=== PATIENT | female | born 1950 | race Caucasian/White ===

== ENCOUNTER → 2024-04-04 08:42 | Outpatient (REF) | payer MEDICARE, OTHER, SELFPAY | LOC: HWRAD 08:42 | PROVIDERS: ATTENDING PHYSICIAN Internal Medicine | DX: R31.29 Other microscopic hematuria (principal) | CPT/HCPCS: 76770 ==

== ENCOUNTER 2025-05-31 16:01 | Inpatient (IN) | payer MEDICARE, OTHER, SELFPAY ==
[2025-05-29] VITALS (15 sets, daily range): BP systolic 117–161; BP diastolic 52–111; PULSE 80; O2SAT 96
--- NOTE | 2025-05-29 09:50 | ED.GENMED ---
History of Present Illness
<Queenie Geller PA-C - Last Filed: 05/29/25 15:43>
General
Chief Complaint: Fall
Source: patient
Exam Limitations: none
Time Seen by Provider: 05/29/25 09:37
History of Present Illness
History of Present Illness:
75yoF with a history of atrial fibrillation on Eliquis, hypertension, and hyperlipidemia presenting via EMS for evaluation after a fall around 6 AM this morning. Patient was attempting to get out of bed when she lost her balance and fell onto her
buttock. She denies any head strike or LOC. Patient was unable to get up after the fall and was on the ground for about an hour before EMS arrived. Her only current complaint is left ankle pain. She denies any headache, neck pain, back pain, hip
pain, shortness of breath. She lives at home with her and daughter. She has a walker at home but does not usually use this.
Phy Exam
<Queenie Geller PA-C - Last Filed: 05/29/25 15:43>
General Physical Exam
General Presentation: well appearing and no apparent distress
General age: appears stated age
General Skin: warm and dry
General Habitus: normal and elderly
General Mental: alert
ENT Exam
ENT Exam: normocephalic and other (No external signs of head trauma. No cervical spine tenderness.)
Eye Exam
Eye Exam: PERRL and conjunctiva normal
Pulmonary Exam
Pulmonary Exam: lungs clear, no respiratory distress, no rales, chest non tender, no crackles, no rhonchi and no wheezing
Gastrointestinal Exam
Gastrointestinal Exam: non tender, soft and non distended
Neurological Exam
Neurological Exam: alert
Mark Coma Scale
Eye Opening: Spontaneous
Verbal Response: Oriented
Motor Response: Obeys Commands
GCS Total Score: 15
Musculoskeletal Exam
Musculoskeletal Exam: other (No deformity noted to L leg. ROM elicits pain in the L ankle and knee. No tenderness to palpation of ankle or hip. 2+ DP pulse and sensation intact. )
Skin Exam
Skin Exam: normal color and warm/dry
Psychiatric Exam
Psychiatric Exam: normal mood/affect
<Jeremy Hernández DO - Last Filed: 05/29/25 12:55>
Mark Coma Scale
GCS Total Score: 15
Course
<Queenie Geller PA-C - Last Filed: 05/29/25 15:43>
Orders/Labs/Results
Orders:
Orders
05/29/25 09:00
CR Ankle - Left Min 3 Views Urgent
Reason For Exam: PAIN
05/29/25 09:45
Acetaminophen [Tylenol] 1,000 mg PO NOW STA
CR Femur - Left Min 2 Vw Urgent
Comment:
Reason For Exam: pain, fall
CR Knee - Left 4 Or More View* Urgent
Comment:
Reason For Exam: pain, fall
05/29/25 10:03
CT Head W/o Iv Contrast Urgent
Comment:
Reason For Exam: fall on blood thinners
05/29/25 11:29
PT Consult [Pt Eval And Treat] Urgent
Activity Level: Out of Bed- Ad Vandana
05/29/25 11:46
Complete Blood Count/With Diff Urgent
Comprehensive Metabolic Panel Urgent
05/29/25 12:22
Case Management Consult ONCE
Case Management Consult: Discharge Planning
05/29/25 13:20
Urinalysis Reflex To Culture Urgent
Date Specimen was Collected: 05/29/25
Time Specimen was Collected: 13:48
05/29/25 Dinner
Regular
05/29/25 15:23
Splint [Braces/Immobilizers] As Directed
Type of Brace/Immobilizer: Splint
Other brace/immobilizer: ankle stirrup velcro
Location for Brace/Immobilizer: left ankle
Out of bed with brace/immobilizer: Yes
05/29/25 15:27
Admit/Transfer Patient As Directed
Co-Sign Provider:
Level of Care: Observation services
Assign to:: Medical/Surgical
Physician / Group: yamil cardona
Diagnosis: Mechan fall L ankle sprain, l knee contusion, hematuria/malodorus urine unc
Code Status As Directed
Resuscitation Status: Full Code
05/29/25 15:30
PRN Pain Medication Management As Directed
May give lesser potent ordered pain med per pt: Yes
preference::
Protocol:: Medication orders for pain may be administered in a
manner that supports deferring to patient preference
when the pt is:
- Requesting an ordered lesser potent pain medication.
Least to most potent pain medications are defined
as: acetaminophen < NSAID < tramadol < opioids
(morphine, oxycodone, hydromorphone).
- Requesting a lesser dose of the same medication IF
ORDERED.
- Requesting a less intrusive route of administration
if both routes are prescribed by the provider (PO <
IV).
Abnormal Lab Results
05/29/25
11:46
MCH 26.0 L pg
(27.0-31.0)
MCHC 31.7 L g/dL
(33.0-37.0)
RDW 19.5 H %
(11.5-14.5)
Abs Immat Gran (auto) 0.1 H 10^3/uL
(0-0.05)
Absolute Neuts (auto) 6.9 H 10^3/uL
(1.4-6.5)
Absolute Monos (auto) 0.7 H 10^3/uL
(0.1-0.6)
Immature Gran % 0.6 H %
(0-0.5)
Neutrophils % 76.6 H %
(42.2-75.2)
Lymphocytes % 13.9 L %
(20.5-51.1)
BUN 19 H mg/dl
(7-17)
Glucose 113 H mg/dl
(70-99)
05/29/25 11:46
05/29/25 11:46
Vital Signs
Initial and Last Documented VS:
Initial Vital Signs
Temp Pulse Resp BP Pulse Ox
98.0 F 74 16 117/52 98
05/29/25 07:54 05/29/25 07:54 05/29/25 07:54 05/29/25 07:54 05/29/25 07:54
Last Documented Vital Signs
Temp Pulse Resp BP Pulse Ox
98.0 F 73 19 117/60 97
05/29/25 07:54 05/29/25 12:12 05/29/25 12:12 05/29/25 12:12 05/29/25 12:12
<Jeremy Hernández, DO - Last Filed: 05/29/25 12:55>
Orders/Labs/Results
Orders:
Orders
05/29/25 09:00
CR Ankle - Left Min 3 Views Urgent
Reason For Exam: PAIN
05/29/25 09:45
Acetaminophen [Tylenol] 1,000 mg PO NOW STA
CR Femur - Left Min 2 Vw Urgent
Comment:
Reason For Exam: pain, fall
CR Knee - Left 4 Or More View* Urgent
Comment:
Reason For Exam: pain, fall
05/29/25 10:03
CT Head W/o Iv Contrast Urgent
Comment:
Reason For Exam: fall on blood thinners
05/29/25 11:29
PT Consult [Pt Eval And Treat] Urgent
Activity Level: Out of Bed- Ad Vandana
05/29/25 11:46
Complete Blood Count/With Diff Urgent
Comprehensive Metabolic Panel Urgent
05/29/25 12:22
Case Management Consult ONCE
Case Management Consult: Discharge Planning
05/29/25 13:20
Urinalysis Reflex To Culture Urgent
Date Specimen was Collected: 05/29/25
Time Specimen was Collected: 13:48
05/29/25 Dinner
Regular
05/29/25 15:23
Splint [Braces/Immobilizers] As Directed
Type of Brace/Immobilizer: Splint
Other brace/immobilizer: ankle stirrup velcro
Location for Brace/Immobilizer: left ankle
Out of bed with brace/immobilizer: Yes
05/29/25 15:27
Admit/Transfer Patient As Directed
Co-Sign Provider:
Level of Care: Observation services
Assign to:: Medical/Surgical
Physician / Group: yamil cardona
Diagnosis: Mechan fall L ankle sprain, l knee contusion, hematuria/malodorus urine unc
Code Status As Directed
Resuscitation Status: Full Code
05/29/25 15:30
PRN Pain Medication Management As Directed
May give lesser potent ordered pain med per pt: Yes
preference::
Protocol:: Medication orders for pain may be administered in a
manner that supports deferring to patient preference
when the pt is:
- Requesting an ordered lesser potent pain medication.
Least to most potent pain medications are defined
as: acetaminophen < NSAID < tramadol < opioids
(morphine, oxycodone, hydromorphone).
- Requesting a lesser dose of the same medication IF
ORDERED.
- Requesting a less intrusive route of administration
if both routes are prescribed by the provider (PO <
IV).
Abnormal Lab Results
05/29/25
11:46
MCH 26.0 L pg
(27.0-31.0)
MCHC 31.7 L g/dL
(33.0-37.0)
RDW 19.5 H %
(11.5-14.5)
Abs Immat Gran (auto) 0.1 H 10^3/uL
(0-0.05)
Absolute Neuts (auto) 6.9 H 10^3/uL
(1.4-6.5)
Absolute Monos (auto) 0.7 H 10^3/uL
(0.1-0.6)
Immature Gran % 0.6 H %
(0-0.5)
Neutrophils % 76.6 H %
(42.2-75.2)
Lymphocytes % 13.9 L %
(20.5-51.1)
BUN 19 H mg/dl
(7-17)
Glucose 113 H mg/dl
(70-99)
05/29/25 11:46
05/29/25 11:46
Vital Signs
Initial and Last Documented VS:
Initial Vital Signs
Temp Pulse Resp BP Pulse Ox
98.0 F 74 16 117/52 98
05/29/25 07:54 05/29/25 07:54 05/29/25 07:54 05/29/25 07:54 05/29/25 07:54
Last Documented Vital Signs
Temp Pulse Resp BP Pulse Ox
98.0 F 73 19 117/60 97
05/29/25 07:54 05/29/25 12:12 05/29/25 12:12 05/29/25 12:12 05/29/25 12:12
<Queenie Geller PA-C - Last Filed: 05/29/25 15:43>
MDM/Problems Addressed
Differential Diagnosis Includes:
75yoF here after a fall this morning. Complained of left head strike although is on Eliquis and ankle pain in triage although was also noted to have left knee tenderness on exam. Denies there is a documented history of vascular dementia. VSS.
Patient is awake and alert with a GCS of 15. Differential diagnosis includes but is not limited to: Fracture, sprain, contusion, intracranial hemorrhage
Initial ED plan: Left ankle x-rays obtained in triage which are negative for fractures. Will also check left knee/femur x-rays and head CT.
<Queenie Geller PA-C - Last Filed: 05/29/25 15:43>
*Pulse Oximetry
SaO2: 98
Oxygen Mode of Delivery: Room air
Patient hypoxic: no
*Critical Care Note
Total Time (30-74mins, 75-104mins- exclusive of procedures): Not Applicable
<Queenie Geller PA-C - Last Filed: 05/29/25 15:43>
Update Note
Update Note:
Remainder of imaging is negative for traumatic injuries. Patient having difficulty ambulating to the bathroom with nursing staff and PT consult obtained. PT recommending SNF. There is only 1 phone number listed in emergency contact list. This
number was called several times by both myself and case management with no answer. Voicemail box is full and unable to leave any messages. While in ED, patient noted to have malodorous urine and hematuria with incontinence. Straight cath
attempted by nursing staff without success. At this point, no safe discharge plan in place so will admit.
ED Attending Note
<Queenie Geller PA-C - Last Filed: 05/29/25 15:43>
-
Portions of this chart may have been created with voice recognition software.� Occasional wrong word or��sound alike� substitutions may have occurred due to the inherent limitations of voice recognition software.
<Jeremy Hernández DO - Last Filed: 05/29/25 12:55>
ED Attending Note
Patient seen and examined by attending physician: Yes
I performed the substantive portion of visit, reviewed & personally made and approve the management plan that is documented in note by myself or GUILHERME.: Yes
ED Attending Note:
I have seen and evaluated the patient with a qfhu-[id number]-ilcy encounter. I have spoken to the advance practicer provider and involved in the medical history, the physical exam, medical decision making.
Evaluation and management service: agree unless noted differently below.
Results interpretation: agree unless noted differently below.
Focused HPI: 75-year-old female presenting after a fall. Patient fell getting out of bed and complains of ankle pain. She is on a blood thinner. Is not certain whether or not she hit her head
Physical exam: Generalized weak and fatigued. No traumatic injury seen in any extremity
Medical Decision Making: Trauma workup negative. Patient evaluated by PT and patient does need assistance. Attempts have been made to contact her family. Patient may require placement
Discharge Plan
Departure
Patient Disposition: Admit
Date of Disposition: 05/29/25
Time of Disposition: 14:56
Presentation/result/management discussed w/ accepting MD/DO: Hospitalist
Discharge Problem:
Ambulatory dysfunction, Ground-level fall, Left leg pain
Prescriptions:
No Action
atorvastatin 40 mg Tablet
40 mg PO DAILY
metoprolol succinate 25 mg Tablet Extended Release 24 Hr
25 mg PO DAILY
Eliquis 5 mg Tablet
5 mg PO BID
Referrals:
Morris Roque MD [Family Provider, Internal Medicine]
Interventions
Interventions:
*General Assessment Last Done: 05/29/25 07:54
*Neglect/Abuse Screening Last Done: 05/29/25 07:54
*ED COVID-19 Vaccine History Last Done: 05/29/25 07:54
*ED Influenza Vaccine History Last Done: 05/29/25 07:54
[facility] Risk Assessment Tool Last Done: 05/29/25 07:54
*Risk Screen - Suicide (C-SSRS) Last Done: 05/29/25 07:54
ED-Musculoskeletal Assessment Last Done: 05/29/25 10:08
ED- Neurological Assessment Last Done: 05/29/25 11:50
ED-Skin Assessment Last Done: 05/29/25 10:08
Discharge Date and Time
Print Language: CANADIAN
[2025-05-29] MEDS: TYLENOL 1000 MG PO (09:55)
[2025-05-29 11:57] LABS: Hematocrit 37.8 % (37.0-47.0); Hemoglobin 12.0 g/dL (12.0-16.0); Mean Corp Hgb Conc. 31.7 g/dL (33.0-37.0); Mean Corpuscular Volume 81.8 fL (81.0-99.0); Nucleated Red Blood Cells % 0 %; Platelet Count 141 10^3/uL (130-400); Red Cell Dist. Width 19.5 % (11.5-14.5)
[2025-05-29 12:07] LABS: AST (SGOT) 23 U/L (14-36); Blood Urea Nitrogen 19 mg/dl (7-17); Carbon Dioxide 26 mmol/L (22-30); Glucose 113 mg/dl (70-99); eGFR > 60.00
[2025-05-29 12:19] LABS: ALT (SGPT) 21 U/L (0-35); Albumin 4.4 g/dl (3.5-5.0); Alkaline Phosphatase 69 U/L (38-126); Calcium 9.3 mg/dl (8.4-10.2); Chloride 105 mmol/L (98-107); Potassium 3.7 mmol/L (3.5-5.1); Sodium 137 mmol/L (135-145); Total Protein 7.3 g/dl (6.3-8.2)
--- NOTE | 2025-05-29 13:25 | EDCM ---
Addendum entered by Elke Nobles 05/29/25 14:32:
Tried again to reach family, still no answer. Denia CATALAN updated via TT.
Addendum entered by Elke Nobles 05/29/25 14:08:
Tried again to reach family, still no answer.
Original Note:
Received consult, reviewed chart and met with pt bedside in ED. Pt lives with her and daughter in [address].
Independent in ADLs, personal care and ambulation at baseline, has walker but does not normally use it.
Seen by PT who recommend SNF or home with 24 hour care.
Pt does not want to go to SNF. Is agreeable to home with VN. No hx VN or SNF.
Pt states and daughter are home all the time, daughter had a stroke several years ago but is still driving.
drives but 'not as much as he used to '.
Discussed with Denia CATALAN, she was not able to reach family, no answer and voicemail is full.
I also attempted to call but still no answer. Pt does not know her daughter's cell phone number.
Will continue to try and reach family.
--- NOTE | 2025-05-29 15:11 | HPS.HSE ---
Family Physician
<MARTINE Reynolds - Last Filed: 05/29/25 15:27>
-
Family Physician: Morris Roque
Chief Complaint
<MARTINE Reynolds - Last Filed: 05/29/25 15:27>
History of Present Illness
75-year-old female she lives with her and daughter who was reportedly attempting to get out of bed at 6 AM this morning when she lost her balance falling onto her buttocks. She was on the floor for approximate 1 hour before she was able to
get a hold of EMS. She was complaining of left knee and ankle pain in the ER. She also complained of urine incontinence with hematuria with the ER staff having difficulty obtaining urine being straight cath after multiple attempts. Imaging
studies were negative for any fractures. The patient has past medical history of history of chronic ambulatory dysfunction uses walker at home, A-fib on Eliquis, HTN, HLD
<Baron Roca MD - Last Filed: 05/29/25 16:25>
-
fall
Medical History
<MARTINE Reynolds - Last Filed: 05/29/25 15:27>
Past Medical History
Past Medical History: Reports Other
Additional Past Medical History:
chronic ambulatory dysfunction uses walker at home
A-fib on Eliquis
HTN
HLD
Vascular dementia
Past Surgical History: Reports Other
Additional Past Surgical History:
Tonsillectomy
Social History
Tobacco: Non-smoker
Alcohol: Occasional (Twice a month)
Drug: None
Personal:
Living: With Family ( and daughter)
Family History
Family History: Unable to Obtain
Allergies / Home Medications
Allergies reflects when Allergies were last updated in [facility].
Home Medications with original date entered in [facility]
Allergy/Medication List:
Allergies
Allergy/AdvReac Type Severity Reaction Status Date / Time
No Known Allergies Allergy Verified 05/29/25 07:58
Home Medications
apixaban 5 mg tablet (Eliquis) 5 mg PO BID 05/29/25
atorvastatin 40 mg tablet 40 mg PO DAILY 05/29/25
metoprolol succinate 25 mg tablet,extended release 24 hr 25 mg PO DAILY 05/29/25
Review of Systems
<MARTINE Reynolds - Last Filed: 05/29/25 15:27>
-
History Source: Patient
A 12 point ROS was completed and negative except as noted: Yes
Constitutional: Denies Fever or Chills
EENT: Denies Sore Throat or Runny Nose
Respiratory: Denies Cough or Trouble Breathing
Cardiac: Denies Chest Pain, Diaphoresis, Palpitations or Syncope
Abdomen/GI: Denies Abdominal Pain, Nausea, Vomiting, Diarrhea, Constipated, Bloody Stools or Black Stools
: Reports Bleeding (Edmondson tinged malodorous urine on arrival incontinent large amount in bed); Denies Dysuria, Frequency, Flank Pain or Urgency
Musculoskeletal: Reports Joint Pain (Left lateral malleolus swelling and tenderness due to fall) and Other (Contusion left knee no effusion or bony tenderness appreciated)
Skin: Denies Itching or Rash
Neurological: Denies Dizzy or Headache
Endocrine: Reports No Symptoms
Psych: Reports Calm
Physical Exam
<MARTINE Reynolds - Last Filed: 05/29/25 15:27>
Vital Signs
Vital Signs
Temp Pulse Resp BP Pulse Ox
98.0 F 73 19 117/60 97
05/29/25 07:54 05/29/25 12:12 05/29/25 12:12 05/29/25 12:12 05/29/25 12:12
Physical Exam
General: Conversant; No Pain, Fever or Chills
HEENT: NormoCephalic, Anicteric, Moist mucous membranes, PERRLA, [place] Conjunctivae and No Ptosis
Respiratory: Clear; No Wheezes or Rales
Cardiac: S1/S2 and Regular Rhythm; No Murmur, Rub, Gallop or Peripheral Edema
GI: Soft, Non Tender, Non Distended, Normal Bowel Sounds and No Hepatosplenomegaly
Rectal: Deferred by Provider
Genito-urinary: Bloody Urine (Edmondson tinged malodorous urine incontinent large amount in the ER)
Musculoskeletal: No Clubbing, No Cyanosis, Edema, Left Lower Extremity (Tenderness with swelling lateral malleolus due to fall, +2 dorsal pedal pulse intact sensation intact) and Other (Contusion left knee no effusion or bony tenderness); No Edema,
Left Upper Extremity, Edema, Right Upper Extremity or Edema, Right Lower Extremity
Skin: Warm and Dry; No Rash
Neuro: AO x 3 (Person, place, year, president but not all of history), Cranial Nerves Intact and No Sensory Deficits; No Slurred Speech, Facial Droop, Tremors or Sedated
Psych: Calm
Laboratory Results
<MARTINE Reynolds - Last Filed: 05/29/25 15:27>
-
05/29/25 11:46
05/29/25 11:46
Laboratory Results
Total Bilirubin 1.3 mg/dl (0.2-1.3) 05/29/25 11:46
AST 23 U/L (14-36) 05/29/25 11:46
ALT 21 U/L (0-35) 05/29/25 11:46
Alkaline Phosphatase 69 U/L (38-126) 05/29/25 11:46
Data Reviewed
<MARTINE Reynolds - Last Filed: 05/29/25 15:27>
-
Diagnostic Radiology: Report Reviewed by me
Lab Data: Labs Reviewed by me
Impression/Plan
<MARTINE Reynolds - Last Filed: 05/29/25 15:27>
-
Impression/plan:
Observation MedSurg
#Mechanical fall with acute on chronic ambulatory dysfunction/Left knee/ankle strain
- Baseline uses walker to walk
- Had PT eval recommending SNF
- Consult case management for SNF
- Tylenol as needed
- Velcro ankle stirrup splint
#Incontinence with malodorous urine/hematuria on exam concern for UTI
- Straight cath attempted multiple times in the ER which is coiling to vaginal vault per nurse
Will attempt urinalysis via bedpan
- Follow UA and culture
#Dementia�vascular
Patient currently oriented to name, place, year, president but not all of history
CT head: No acute intracranial normality. Mild age-related parenchymal atrophy, patchy low-attenuation bilateral cerebral white matter with greatest involvement bilateral frontal lobes left greater than right chronic ischemia
Left knee, ankle, femur: no acute fracture or dislocation
#A-fib
- Eliquis 5 mg twice daily
#HTN
BP 117/60
Continue metoprolol succinate 25 mg daily with hold parameter
#HLD
Continue Lipitor 40 mg daily
DVT prophylaxis
Continue Eliquis 5 mg twice daily
Full code states cheri Francis is emergency contact
--- NOTE | 2025-05-29 16:26 | W.PN.UPDATE ---
Update Note
Progress Note Update
I saw and examined the patient.
The BAG SEALER or PA's note was reviewed and I agree with the note.
Comment: 75-year-old female with history of atrial fibrillation, vascular dementia, hypertension, hyperlipidemia came to the hospital after a fall. No fracture on imaging. Evaluated by physical therapy recommended SNF. Check bladder scan. UA.
Obs. CM
General: Conversant; No Pain, Fever or Chills
HEENT: NormoCephalic, Anicteric
Respiratory: Clear; No Wheezes or Rales
Cardiac: S1/S2 and Regular Rhythm; No Murmur, Rub, Gallop or Peripheral Edema
GI: Soft, Non Tender, Non Distended, Normal Bowel Sounds
Genito-urinary: no mcguire
Musculoskeletal: Edema, Left Lower Extremity (Tenderness with swelling lateral malleolus due to fall) and Other (Contusion left knee no effusion or bony tenderness); No Edema, Left Upper Extremity, Edema, Right Upper Extremity or Edema, Right Lower
Extremity
Neuro: AO x 2-3
Psych: Calm
[2025-05-29] MEDS: ELIQUIS 5 MG PO (22:54)
[2025-05-30] VITALS (17 sets, daily range): BP systolic 136–157; BP diastolic 76–128; BMI 18.9
[2025-05-30 02:55] LABS: Urine Character Cloudy (Clear)
[2025-05-30] MEDS: TYLENOL 650 MG PO (03:58)
[2025-05-30 04:46] LABS: Blood Urea Nitrogen 17 mg/dl (7-17); Calcium 8.5 mg/dl (8.4-10.2); Carbon Dioxide 22 mmol/L (22-30); Chloride 106 mmol/L (98-107); Estimated Creatinine Clearance 82 ml/min; Glucose 87 mg/dl (70-99); Potassium 3.7 mmol/L (3.5-5.1); Sodium 136 mmol/L (135-145); eGFR > 60.00
[2025-05-30 05:34] LABS: Hematocrit 32.4 % (37.0-47.0); Hemoglobin 10.4 g/dL (12.0-16.0); Mean Corp Hgb Conc. 32.1 g/dL (33.0-37.0); Mean Corpuscular Volume 82.4 fL (81.0-99.0); Nucleated Red Blood Cells % 0 %; Platelet Count 121 10^3/uL (130-400); Red Cell Dist. Width 19.2 % (11.5-14.5)
[2025-05-30 06:15] LABS: Urine Red Blood Cell 0-2 /HPF (0-2)
[2025-05-30] MEDS: LIPITOR 40 MG PO (09:03)
[2025-05-30] MEDS: ELIQUIS 5 MG PO ×2 (09:03→20:47)
[2025-05-30] MEDS: TOPROL XL 25 MG PO (09:03)
[2025-05-30] MEDS: ROCEPHIN 1000 MG IV (09:04)
[2025-05-30] MEDS: STERILE WATER FOR INJECTION 10 ML IV (09:04)
[2025-05-30] MEDS: NSS 1000 IV (09:26)
--- NOTE | 2025-05-30 09:29 | EDCM ---
Addendum entered by Elke Nobles 05/30/25 10:46:
I met with pt, she told me her sister from [place] called but she does not know her number. Her name is Jovany Zaldivar.
Her daughter's name is Trudy Argueta, she lives with pt and her . I googled Trudy and found a cell phone number [phone]. I called and spoke to Trudy, updated her on her mother's condition. TT to Dr Roca, pt is not ready for discharge
today. I updated Trudy, pt and LINDA Penaloza.
Original Note:
Received consult, again attempted to reach family, no answer and unable to leave voicemail as memory is full.
--- NOTE | 2025-05-30 12:14 | W.PN.HOSP.TC ---
Today's Communication/Plan
-
Monitor vital signs and see plan
Follow urine culture
Start fluids
Metoprolol also added as needed for rapid heart rate if needed
Continue with standing metoprolol
Called spouse, could not leave voicemail since its full
Assessment / Plan
Assessment / Plan
General: Conversant; No Pain, Fever or Chills
HEENT: NormoCephalic, Anicteric
Respiratory: Clear; No Wheezes or Rales
Cardiac: S1/S2 and Regular Rhythm; No Murmur, Rub, Gallop or Peripheral Edema
GI: Soft, Non Tender, Non Distended, Normal Bowel Sounds
Genito-urinary: no mcguire
Musculoskeletal: Edema, Left Lower Extremity (Tenderness with swelling lateral malleolus due to fall) and Other (Contusion left knee no effusion or bony tenderness); No Edema, Left Upper Extremity, Edema, Right Upper Extremity or Edema, Right Lower
Extremity
Neuro: AO x 2-3
Psych: Calm
Mechanical fall with acute on chronic ambulatory dysfunction/Left knee/ankle strain
- Baseline uses walker to walk
- Had PT eval recommending SNF, patient wants to go home
geochemical manager following
- Tylenol as needed
- Velcro ankle stirrup splint
#Incontinence with malodorous urine/hematuria on exam
Ua appears benign; follow urine cx
no abdominal pain
start IVF; appears dehydrated
#Dementia�vascular
Patient currently oriented to name, place, year, president but not all of history
CT head: No acute intracranial normality. Mild age-related parenchymal atrophy, patchy low-attenuation bilateral cerebral white matter with greatest involvement bilateral frontal lobes left greater than right chronic ischemia
Left knee, ankle, femur: no acute fracture or dislocation
#A-fib; unknown chronicity
- Eliquis 5 mg twice daily
cw metoprolol
#HTN
Continue metoprolol succinate 25 mg daily with hold parameter
#HLD
Continue Lipitor 40 mg daily
DVT prophylaxis
Continue Eliquis 5 mg twice daily
Full code
Anticipated Discharge: Within 24 hours
Subjective/Interval History
-
Date of Service: May 30, 2025
Denies pain
Objective Data
-
Labs:
Laboratory Results
05/30/25
03:57
WBC 6.3
Hgb 10.4 L
Hct 32.4 L
Plt Count 121 L
Sodium 136
Potassium 3.7
Chloride 106
Carbon Dioxide 22
BUN 17
Creatinine 0.6
Glucose 87
Calcium 8.5
Vital Signs:
Vital Signs
Temp Pulse Resp BP Pulse Ox
98.7 F 101 23 148/90 80
05/29/25 19:37 05/30/25 11:15 05/30/25 11:15 05/30/25 11:00 05/30/25 11:15
[2025-05-31] MEDS: NSS 1000 IV (00:59)
[2025-05-31 05:20] VITALS: BP 148/80
--- NOTE | 2025-05-31 05:39 | PTCARENOTE ---
Pt received from LD via at 0520. Pt pleasant, AAOx3, VSS, and able to stand and pivot into bed with 1-2 assistance. Pt receptive to room and call johnson. Pt bed in lowest position and call johnson within reach. Pt educated on importance of call johnson
usage, pt relays limited understanding and cooperation. Bed alarm placed and plugged in. Will continue with current plan of care.
[2025-05-31 07:20] VITALS: BP 142/87
[2025-05-31 08:51] LABS: Hematocrit 32.7 % (37.0-47.0); Hemoglobin 10.7 g/dL (12.0-16.0); Mean Corp Hgb Conc. 32.7 g/dL (33.0-37.0); Mean Corpuscular Volume 83.6 fL (81.0-99.0); Nucleated Red Blood Cells % 0 %; Platelet Count 108 10^3/uL (130-400); Red Cell Dist. Width 18.8 % (11.5-14.5)
[2025-05-31] MEDS: ROCEPHIN 1000 MG IV (09:14)
[2025-05-31] MEDS: STERILE WATER FOR INJECTION 10 ML IV (09:14)
[2025-05-31 09:15] LABS: Blood Urea Nitrogen 11 mg/dl (7-17); Calcium 8.2 mg/dl (8.4-10.2); Carbon Dioxide 24 mmol/L (22-30); Chloride 104 mmol/L (98-107); Estimated Creatinine Clearance 82 ml/min; Glucose 84 mg/dl (70-99); Potassium 3.4 mmol/L (3.5-5.1); Sodium 134 mmol/L (135-145); eGFR > 60.00
[2025-05-31] MEDS: ELIQUIS 5 MG PO ×2 (09:15→20:43)
[2025-05-31] MEDS: TOPROL XL 25 MG PO (09:15)
[2025-05-31] MEDS: LIPITOR 40 MG PO (09:15)
[2025-05-31] MEDS: KCL 20 MEQ PO (09:48)
--- NOTE | 2025-05-31 13:18 | W.PN.HOSP.TC ---
Today's Communication/Plan
-
Monitor vital signs see plan
Follow urine culture
Start ceftriaxone
Discussed with daughter
Assessment / Plan
Assessment / Plan
General: Conversant; No Pain, Fever or Chills
HEENT: NormoCephalic, Anicteric
Respiratory: Clear; No Wheezes or Rales
Cardiac: S1/S2 and Regular Rhythm; No Murmur, Rub
GI: Soft, Non Tender, Non Distended, Normal Bowel Sounds
Genito-urinary: no mcguire
Musculoskeletal: Edema, Left Lower Extremity (Tenderness with swelling lateral malleolus due to fall) and Other (Contusion left knee no effusion or bony tenderness); No Edema, Left Upper Extremity, Edema, Right Upper Extremity or Edema, Right Lower
Extremity
Neuro: AO x 2-3
Psych: Calm
Mechanical fall with acute on chronic ambulatory dysfunction/Left knee/ankle strain
- Baseline uses walker to walk
- Had PT eval recommending SNF, patient wants to go home. Patient has very poor insight of her medical problems given vascular dementia. Discussed with daughter and they prefer SNF.
protection manager following
- Tylenol as needed
- Velcro ankle stirrup splint
#Incontinence with malodorous urine/hematuria on exam
Urine culture with Proteus, cw ceftriaxone
#Dementia�vascular
Patient currently oriented to name, place, year, president but not all of history
CT head: No acute intracranial normality. Mild age-related parenchymal atrophy, patchy low-attenuation bilateral cerebral white matter with greatest involvement bilateral frontal lobes left greater than right chronic ischemia
Left knee, ankle, femur: no acute fracture or dislocation
#A-fib; unknown chronicity
- Eliquis 5 mg twice daily
cw metoprolol
#HTN
Continue metoprolol succinate 25 mg daily with hold parameter
#HLD
Continue Lipitor 40 mg daily
DVT prophylaxis
Continue Eliquis 5 mg twice daily
Full code
Daughter's contact: [phone]
Anticipated Discharge: 24 - 48 hours
Subjective/Interval History
-
Date of Service: May 31, 2025
denies nausea
Objective Data
-
Labs:
Laboratory Results
05/31/25
07:17
WBC 5.6
Hgb 10.7 L
Hct 32.7 L
Plt Count 108 L
Sodium 134 L
Potassium 3.4 L
Chloride 104
Carbon Dioxide 24
BUN 11
Creatinine 0.6
Glucose 84
Calcium 8.2 L
Vital Signs:
Vital Signs
Temp Pulse Resp BP Pulse Ox
98.2 F 102 16 143/81 94
05/31/25 07:20 05/31/25 09:15 05/31/25 07:20 05/31/25 09:15 05/31/25 07:20
I&O
05/30/25 05/31/25 06/01/25
06:59 06:59 06:59
Intake Total 120 / 120
Balance 120 / 120
[2025-05-31 15:15] VITALS: BP 143/91
--- NOTE | 2025-05-31 17:51 | CM ---
Chart reviewed. PT is recommending SNF for patient. Spoke with patient's daughter, Elba by telephone. Daughter is requesting referral to [facility]. [facility]. Referrals
placed in [facility].
Plan: SNF
--- NOTE | 2025-05-31 18:34 | PTCARENOTE ---
Assumed care of pt from previous nurse. Pt denies pain. Pt with left ankle brace intact. Pt call johnson is within reach, pt rings syeda., bed alarm in place. will cont to monitor.
[2025-05-31 23:47] VITALS: BP 144/88
[2025-06-01 07:26] LABS: Hematocrit 33.6 % (37.0-47.0); Hemoglobin 11.2 g/dL (12.0-16.0); Mean Corp Hgb Conc. 33.3 g/dL (33.0-37.0); Mean Corpuscular Volume 82.0 fL (81.0-99.0); Nucleated Red Blood Cells % 0 %; Platelet Count 121 10^3/uL (130-400); Red Cell Dist. Width 18.6 % (11.5-14.5)
[2025-06-01 07:27] LABS: Blood Urea Nitrogen 11 mg/dl (7-17); Calcium 8.4 mg/dl (8.4-10.2); Carbon Dioxide 23 mmol/L (22-30); Chloride 104 mmol/L (98-107); Estimated Creatinine Clearance 82 ml/min; Glucose 88 mg/dl (70-99); Potassium 3.9 mmol/L (3.5-5.1); Sodium 136 mmol/L (135-145); eGFR > 60.00
[2025-06-01 07:40] VITALS: BP 139/93
[2025-06-01] MEDS: TYLENOL 650 MG PO (09:01)
[2025-06-01] MEDS: ELIQUIS 5 MG PO ×2 (09:01→19:50)
[2025-06-01] MEDS: TOPROL XL 25 MG PO (09:01)
[2025-06-01] MEDS: LIPITOR 40 MG PO (09:01)
[2025-06-01] MEDS: ROCEPHIN 1000 MG IV (09:02)
--- NOTE | 2025-06-01 15:40 | W.PN.HOSP.TC ---
Today's Communication/Plan
-
Monitor vital signs see plan
Has UTI
Needs SNF
Assessment / Plan
Assessment / Plan
General: Conversant; No Pain, Fever or Chills
HEENT: NormoCephalic, Anicteric
Respiratory: Clear; No Wheezes or Rales
Cardiac: S1/S2 and Regular Rhythm; No Murmur, Rub
GI: Soft, Non Tender, Non Distended, Normal Bowel Sounds
Genito-urinary: no mcguire
Musculoskeletal: Edema, Left Lower Extremity (Tenderness with swelling lateral malleolus due to fall) and Other (Contusion left knee no effusion or bony tenderness); No Edema, Left Upper Extremity, Edema, Right Upper Extremity or Edema, Right Lower
Extremity
Neuro: AO x 2-3
Psych: Calm
Mechanical fall with acute on chronic ambulatory dysfunction/Left knee/ankle strain
- Baseline uses walker to walk
- Had PT eval recommending SNF, patient wants to go home. Patient has very poor insight of her medical problems given vascular dementia. Discussed with daughter and they prefer SNF.
candy department manager following
- Tylenol as needed
- Velcro ankle stirrup splint
#Incontinence with malodorous urine/hematuria on exam
Urine culture with Proteus, cw ceftriaxone; dc further. finished treatment
#Dementia�vascular
Patient currently oriented to name, place, year, president but not all of history
CT head: No acute intracranial normality. Mild age-related parenchymal atrophy, patchy low-attenuation bilateral cerebral white matter with greatest involvement bilateral frontal lobes left greater than right chronic ischemia
Left knee, ankle, femur: no acute fracture or dislocation
#A-fib; unknown chronicity
- Eliquis 5 mg twice daily
cw metoprolol
#HTN
Continue metoprolol succinate 25 mg daily with hold parameter
#HLD
Continue Lipitor 40 mg daily
DVT prophylaxis
Continue Eliquis 5 mg twice daily
Full code
Daughter's contact: [phone]
Anticipated Discharge: Within 24 hours
Subjective/Interval History
-
Date of Service: June 01, 2025
denies pain
Objective Data
-
Labs:
Laboratory Results
06/01/25
05:59
WBC 4.8
Hgb 11.2 L
Hct 33.6 L
Plt Count 121 L
Sodium 136
Potassium 3.9
Chloride 104
Carbon Dioxide 23
BUN 11
Creatinine 0.6
Glucose 88
Calcium 8.4
Vital Signs:
Vital Signs
Temp Pulse Resp BP Pulse Ox
97.4 F 88 16 139/93 97
06/01/25 07:40 06/01/25 07:40 06/01/25 07:40 06/01/25 09:01 06/01/25 08:00
I&O
05/31/25 06/01/25 06/02/25
06:59 06:59 06:59
Intake Total 120 / 120 780 / 780
Balance 120 / 120 780 / 780
[2025-06-01 15:57] VITALS: BP 122/82
[2025-06-01 23:20] VITALS: BP 114/73
[2025-06-02 07:22] LABS: Hematocrit 35.8 % (37.0-47.0); Hemoglobin 11.6 g/dL (12.0-16.0); Mean Corp Hgb Conc. 32.4 g/dL (33.0-37.0); Mean Corpuscular Volume 80.4 fL (81.0-99.0); Nucleated Red Blood Cells % 0 %; Platelet Count 144 10^3/uL (130-400); Red Cell Dist. Width 18.2 % (11.5-14.5)
[2025-06-02 07:55] VITALS: BP 117/83
[2025-06-02 08:13] LABS: Blood Urea Nitrogen 15 mg/dl (7-17); Calcium 8.5 mg/dl (8.4-10.2); Carbon Dioxide 23 mmol/L (22-30); Chloride 104 mmol/L (98-107); Estimated Creatinine Clearance 82 ml/min; Glucose 92 mg/dl (70-99); Potassium 3.9 mmol/L (3.5-5.1); Sodium 135 mmol/L (135-145); eGFR > 60.00
[2025-06-02] MEDS: STERILE WATER FOR INJECTION 10 ML IV (08:30)
[2025-06-02] MEDS: ROCEPHIN 1000 MG IV (08:30)
[2025-06-02] MEDS: TOPROL XL 25 MG PO (08:30)
[2025-06-02] MEDS: LIPITOR 40 MG PO (08:30)
[2025-06-02] MEDS: ELIQUIS 5 MG PO ×2 (08:30→19:50)
--- NOTE | 2025-06-02 10:55 | CM ---
Chart reviewed and embedded case manager spoke with patient's physician referrals have been sent, embedded case manager will need to follow up with [facility], [facility] and [facility] tomorrow.
Plan; Skilled placement tomorrow.
--- NOTE | 2025-06-02 12:40 | W.PN.HOSP.TC ---
Today's Communication/Plan
-
Monitor vital signs see plan
Pending placement, ed case manager aware
finished abx
Assessment / Plan
Assessment / Plan
General: Conversant; No Pain, Fever or Chills
HEENT: NormoCephalic, Anicteric
Respiratory: Clear; No Wheezes or Rales
Cardiac: S1/S2 and Regular Rhythm; No Murmur, Rub
GI: Soft, Non Tender, Non Distended, Normal Bowel Sounds
Genito-urinary: no mcguire
Musculoskeletal: Edema, Left Lower Extremity (Tenderness with swelling lateral malleolus due to fall); No Edema, Left Upper Extremity, Edema, Right Upper Extremity or Edema, Right Lower Extremity
Neuro: AO x 2-3
Psych: Calm
Mechanical fall with acute on chronic ambulatory dysfunction/Left knee/ankle strain
- Baseline uses walker to walk
- Had PT eval recommending SNF. Patient has very poor insight of her medical problems given vascular dementia. Discussed with daughter and they prefer SNF.
business integration manager following
- Tylenol as needed
- Velcro ankle stirrup splint. Podiatry follow-up outpatient
#Incontinence with malodorous urine/hematuria on exam
Urine culture with Proteus, finished treatment with ceftriaxone
#Dementia�vascular
Patient currently oriented to name, place, year, president but not all of history
CT head: No acute intracranial normality. Mild age-related parenchymal atrophy, patchy low-attenuation bilateral cerebral white matter with greatest involvement bilateral frontal lobes left greater than right chronic ischemia
Left knee, ankle, femur: no acute fracture or dislocation
#A-fib; unknown chronicity
- Eliquis 5 mg twice daily
cw metoprolol
#HTN
Continue metoprolol succinate 25 mg daily with hold parameter
#HLD
Continue Lipitor 40 mg daily
DVT prophylaxis
Continue Eliquis 5 mg twice daily
Full code
Daughter's contact: [phone]
Anticipated Discharge: Within 24 hours
Subjective/Interval History
-
Date of Service: June 02, 2025
denies pain
Objective Data
-
Labs:
Laboratory Results
06/02/25
07:10
WBC 4.4 L
Hgb 11.6 L
Hct 35.8 L
Plt Count 144
Sodium 135
Potassium 3.9
Chloride 104
Carbon Dioxide 23
BUN 15
Creatinine 0.6
Glucose 92
Calcium 8.5
Vital Signs:
Vital Signs
Temp Pulse Resp BP Pulse Ox
97.6 F 86 16 117/83 95
06/02/25 07:55 06/02/25 08:30 06/02/25 07:55 06/02/25 08:30 06/02/25 11:05
I&O
06/01/25 06/02/25 06/03/25
06:59 06:59 06:59
Intake Total 780 / 780 1280 / 1280
Balance 780 / 780 1280 / 1280
[2025-06-02 15:25] VITALS: BP 123/67; PULSE 93; O2SAT 95
[2025-06-02 15:43] VITALS: BP 101/67
[2025-06-02 23:11] VITALS: BP 136/83
[2025-06-03 07:00] VITALS: BP 168/93
[2025-06-03] MEDS: TOPROL XL 25 MG PO (08:18)
[2025-06-03] MEDS: LIPITOR 40 MG PO (08:18)
[2025-06-03] MEDS: ELIQUIS 5 MG PO (08:18)
[2025-06-03 08:54] LABS: Hematocrit 36.9 % (37.0-47.0); Hemoglobin 11.8 g/dL (12.0-16.0); Mean Corp Hgb Conc. 32.0 g/dL (33.0-37.0); Mean Corpuscular Volume 81.3 fL (81.0-99.0); Nucleated Red Blood Cells % 0 %; Platelet Count 147 10^3/uL (130-400); Red Cell Dist. Width 18.2 % (11.5-14.5)
--- NOTE | 2025-06-03 08:58 | W.PN.HOSP.TC ---
Today's Communication/Plan
-
Medically cleared for discharge to SNF once bed available.
Assessment / Plan
Assessment / Plan
Impression:
Patient with history of dementia, admitted after fall with ambulatory dysfunction, physical therapy recommending SNF
Assessment/plan:
Mechanical fall with acute on chronic ambulatory dysfunction; Left knee/ankle strain
Baseline: ambulates with walker
PT evaluation recommends SNF; patient has poor insight into medical issues due to vascular dementia
Hospitalist team discussed with daughter; family prefers SNF
retail district manager following
Tylenol as needed
Velcro ankle stirrup splint; outpatient podiatry follow-up
Incontinence with malodorous urine and hematuria on exam-hematuria
Urine culture grew Proteus; completed ceftriaxone treatment
Hemoglobin stable
Vascular dementia
Patient oriented to name, place, year, president; incomplete historical recall
CT head: No acute intracranial abnormality; mild age-related parenchymal atrophy; patchy low-attenuation bilateral cerebral white matter (greatest in bilateral frontal lobes, L > R) consistent with chronic ischemia
Imaging of left knee, ankle, femur: No acute fracture or dislocation
Atrial fibrillation (unknown chronicity)
Continue Eliquis 5 mg BID
Continue metoprolol
Normocytic anemia.
Hematuria, hemoglobin stable.
Hypertension
Continue metoprolol succinate 25 mg daily with hold parameters
Hyperlipidemia
Continue atorvastatin (Lipitor) 40 mg daily
DVT prophylaxis
Continue Eliquis 5 mg BID
Code status
Full code
Diet: Regular diet
Physical therapy recommendations:SNF
Disposition: Medically cleared for discharge to SNF once bed available.
Total time spent on today's encounter was 55 minutes which included time spent in counseling the patient/family regarding diagnosis and treatment plan as listed above, goals of care, and symptom management. Case was discussed with nursing staff,
specialists, and care coordinators/case management. All labs and imaging personally reviewed by me. Remainder the time spent in detailed review of previous records, lab data, imaging, and other medical provider documentation.
Part of this note was created using voice recognition system. Occasional wrong word or �sound alike� substitutions may have inadvertently occurred due to the inherent limitations of voice recognition software. If noted kindly bring it to my
attention for correction.
Anticipated Discharge: Today
Subjective/Interval History
-
Date of Service: June 03, 2025
Patient seen and examined at bedside, still complaining of ankle pain but overall denies any chest pain or shortness of breath, no abdominal pain, no nausea, no vomiting, no diarrhea or constipation.
Objective Data
-
Labs:
Laboratory Results
06/03/25
08:36
WBC 4.4 L
Hgb 11.8 L
Hct 36.9 L
Plt Count 147
Vital Signs:
Vital Signs
Temp Pulse Resp BP Pulse Ox
97.4 F 78 16 136/83 97
06/02/25 23:11 06/02/25 23:11 06/02/25 23:11 06/02/25 23:11 06/02/25 23:11
I&O
06/02/25 06/03/25 06/04/25
06:59 06:59 06:59
Intake Total 1280 / 1280 720 / 720
Balance 1280 / 1280 720 / 720
Physical Exam
-
General: Well Developed, Well Nourished, No Apparent Distress and Comfortable
HEENT: Normocephalic, Atraumatic, Moist Mucous Membranes, No Ptosis, PERRLA and Nose Appears Normal
Respiratory: Clear to Auscultation and Non Labored Respirations
Cardiac: Regular Rhythm and S1/S2
Breast: Deferred by me
GI: Soft, Nontender, Nondistended and Normal Bowel Sounds
Genito-urinary: No Costovertebral Tender
Musculoskeletal: No Clubbing, No Cyanosis and No Edema
Skin: Warm
Neuro: Awake, Alert, Oriented, AO x 3 and No Motor Deficits
Psych: Calm
Data Reviewed
-
Diagnostic Radiology: Image personally visualized and interpreted and Report Reviewed by me
CT Scan: Image personally visualized and interpreted and Report Reviewed by me
Ultrasound: Image personally visualized and interpreted and Report Reviewed by me
MRI: Image personally visualized and interpreted and Report Reviewed by me
Medical Tests (Nuc Med, Echo etc): Image personally visualized and interpreted and Report Reviewed by me
Labs: Labs Reviewed by me
Old Records: Reviewed
--- NOTE | 2025-06-03 14:38 | CM ---
Patient is ready for SNF transfer today. [facility]. CM spoke with patient's daughter, Elba and sister, Justine. Family has [facility]. Patient will need ambulance transport. IMM reviewed with
patient's sister.
[facility]
Tel# for [phone]

[facility]
--- NOTE | 2025-06-03 14:57 | W.DCSUMMARY ---
Discharge Summary
Discharge Data
Date of Admission: 05/31/25
Date of Discharge: 06/03/25
Total time spent discharging patient (in min): 40
-
Pending Results: No
Hospital Course
Hospital course
Patient is 75 years old with a history of A-fib, hyperlipidemia , hypertension, vascular dementia, anemia, who presented after a mechanical fall with acute on chronic ambulatory dysfunction and left knee/ankle strain. Baseline mobility includes
ambulation with a walker. Physical therapy evaluation recommends detention facility (SNF) placement due to poor insight into medical issues secondary to vascular dementia. Hospitalist team discussed disposition with the patient�s daughter;
family agrees with SNF placement. Case management is following. Pain managed with Tylenol as needed. Velcro ankle stirrup splint applied; outpatient podiatry follow-up arranged. Patient also noted to have incontinence with malodorous urine and
hematuria on exam. Urine culture grew Proteus species; completed ceftriaxone treatment. Hemoglobin remained stable throughout hospitalization.
During hospitalization patient was treated from the following
Mechanical fall with acute on chronic ambulatory dysfunction; Left knee/ankle strain
Baseline: ambulates with walker
PT evaluation recommends SNF; patient has poor insight into medical issues due to vascular dementia
Hospitalist team discussed with daughter; family prefers SNF
logistics planning manager following
Tylenol as needed
Velcro ankle stirrup splint; outpatient podiatry follow-up
Incontinence with malodorous urine and hematuria on exam-hematuria
Urine culture grew Proteus; completed ceftriaxone treatment
Hemoglobin stable
Vascular dementia
Patient oriented to name, place, year, president; incomplete historical recall
CT head: No acute intracranial abnormality; mild age-related parenchymal atrophy; patchy low-attenuation bilateral cerebral white matter (greatest in bilateral frontal lobes, L > R) consistent with chronic ischemia
Imaging of left knee, ankle, femur: No acute fracture or dislocation
Atrial fibrillation (unknown chronicity)
Continue Eliquis 5 mg BID
Continue metoprolol
Normocytic anemia.
Hematuria, hemoglobin stable.
Hypertension
Continue metoprolol succinate 25 mg daily with hold parameters
Hyperlipidemia
Continue atorvastatin (Lipitor) 40 mg daily
DVT prophylaxis
Continue Eliquis 5 mg BID
Code status
Full code
Diet: Regular diet
Physical therapy recommendations:SNF
Disposition: Medically cleared for discharge to SNF once bed available.
Total time spent on today's encounter was 40 minutes which included time spent in counseling the patient/family regarding diagnosis and treatment plan as listed above, goals of care, and symptom management. Case was discussed with nursing staff,
specialists, and care coordinators/case management. All labs and imaging personally reviewed by me. Remainder the time spent in detailed review of previous records, lab data, imaging, and other medical provider documentation.
Anticipated Discharge: Today
Discharge Plan
-
Patient Disposition: Long-Term/SNF
Discharge Diagnosis/Procedures: Mechanical fall with acute on chronic ambulatory dysfunction; Left knee/ankle strain
Acute UTI
incontinence with hematuria.
Vascular dementia
Atrial fibrillation
Diet: As tolerated and Regular
Activity: With assistance and As tolerated
Referrals:
Morris Roque MD [Family Provider, Internal Medicine] - in less than 1 week
Twila Petit DPM [Specified Professional Personl, Podiatry]
Prescriptions:
New
acetaminophen 325 mg Tablet
650 mg PO Q4HPRN PRN (Reason: mild pain/DOAN/temp> 100.4F) Qty: 0 0RF
Continued
atorvastatin 40 mg Tablet
40 mg PO DAILY
metoprolol succinate 25 mg Tablet Extended Release 24 Hr
25 mg PO DAILY
Eliquis 5 mg Tablet
5 mg PO BID
Discharge Orders:
Discharge Patient (As Directed); Ordered 06/03/25
Ordered By: Omid Galvan
Discharge Date and Time
Print Language: MALTESE
[2025-06-03 15:00] VITALS: BP 138/90
--- NOTE | 2025-06-03 20:24 | PTCARENOTE ---
Pt. transported by EMS at this time. Report given to [facility] by daytime RN. IV dc'd. Pt. awake and oriented.
== END 2025-06-03 20:24 | DRG 563 ==
LOC: 4 WEST ACU 16:01
PROVIDERS: Clinical Nurse Specialist Family Health; Physician Assistant; ADMITTING PHYSICIAN Internal Medicine; ATTENDING PHYSICIAN General Practice; EMERGENCY PHYSICIAN Student in an Organized Health Care Education/Training Program; FAMILY PHYSICIAN Internal Medicine
DX: S93.402A Sprain of unspecified ligament of left ankle, initial encounter (principal); N39.0 Urinary tract infection, site not specified; W06.XXXA Fall from bed, initial encounter; S83.92XA Sprain of unspecified site of left knee, initial encounter; R32 Unspecified urinary incontinence; R31.9 Hematuria, unspecified; I48.91 Unspecified atrial fibrillation; I10 Essential (primary) hypertension; E78.5 Hyperlipidemia, unspecified; F01.50 Vascular dementia, unspecified severity, without behavioral disturbance, psychotic disturbance, mood disturbance, and anxiety; D64.9 Anemia, unspecified; B96.4 Proteus (mirabilis) (morganii) as the cause of diseases classified elsewhere; Z75.1 Person awaiting admission to adequate facility elsewhere; Z79.01 Long term (current) use of anticoagulants
CPT/HCPCS: 70450; 73552; 73564; 73610; 80048; 80053; 81003; 81015; 85025; 87077; 87086; 87186; 93005; 97166; 97530; 97535